=== PATIENT | female | born 1980 | race Caucasian/White ===

== ENCOUNTER 2016-10-28 08:14 | Inpatient (IN) | payer OTHER ==
[~2016-10-28] VITALS: Ht 167.6 cm; Wt 122.5 kg
[2016-10-28] MEDS ORDERED: Sodium Chloride LOK Flush 10 mL Syringe IVFLUSH PRN ×2 (08:50→16:30)
[2016-10-28] MEDS ORDERED: Methylergonovine 0.2 mg/mL Inj IM PRN ×2 (08:50→16:30)
[2016-10-28] MEDS ORDERED: Oxytocin 30 Units/500 mL LR 30 UNITS in IV Premix 1 EACH IV PRN ×2 (08:50→16:30)
[2016-10-28] MEDS ORDERED: Oxytocin 10 Unit/mL Inj IM PRN ×2 (08:50→16:30)
[2016-10-28] MEDS ORDERED: Penicillin G K Inj 5,000,000 UNITS in Dextrose 5% Minibag Plus 100 ML IV ONE (08:50)
[2016-10-28] MEDS ORDERED: fentaNYL-PF 50 mCg/mL 2 mL Inj IVPUSH PRN ×2 (08:50→16:45)
[2016-10-28] MEDS ORDERED: Hemorrhage Kit, Post Partum XX ONE ×2 (08:50→16:30)
[2016-10-28] MEDS ORDERED: Carboprost 250 mCg/mL Inj IM PRN ×2 (08:50→16:30)
[2016-10-28 09:33] LABS: Mean Corpuscular Hemoglobin 29.6 pg (27.0-35.0); Mean Corpuscular Volume 88.8 fL (81-100)
[2016-10-28] MEDS ORDERED: 0.9% Sodium Chloride 100 ML IV ONE (09:44)
[2016-10-28] MEDS ORDERED: Penicillin G K 5,000,000 Units Inj ONE (09:44)
[2016-10-28] MEDS: Lactated Ringer's 1,000 ML IV PRN ×2 (09:48→10:39)
[2016-10-28] MEDS ORDERED: fentaNYL 2 mCg/mL-Bupivicaine 0.125% 100 mL Premix EPIDURAL ONE (09:50)
[2016-10-28] MEDS ORDERED: Oxytocin 10 Unit/mL Inj ONE (10:12)
[2016-10-28] MEDS ORDERED: Ondansetron 2 mg/mL 2 mL Inj ONE (10:12)
[2016-10-28] MEDS ORDERED: MetoCLOpramide 5 mg/mL 2 mL Inj ONE (10:12)
[2016-10-28] MEDS ORDERED: Phenylephrine/NS 100 mCg/mL 10 mL Syringe IVPUSH ONE (10:12)
[2016-10-28] MEDS ORDERED: Morphine PF 1 mg/mL 10 mL Inj ONE (10:12)
[2016-10-28] MEDS: Lactated Ringer's 1,000 ML IV SCH (10:44)
[2016-10-28] MEDS ORDERED: Lactated Ringer's 500 ML IV ONE (10:44)
[2016-10-28] MEDS ORDERED: EPHEDrine Sulfate 50 mg/mL Inj IVPUSH PRN ×2 (10:45→16:45)
[2016-10-28] MEDS ORDERED: Ondansetron 2 mg/mL 2 mL Inj IVPUSH PRN ×2 (10:45→16:45)
[2016-10-28] MEDS ORDERED: fentaNYL 2 mCg/mL-Bupiv 0.125% 100 ML EPIDURAL SCH (10:45)
[2016-10-28] MEDS ORDERED: Atropine 1 mg/10 mL (Code) Syringe IVPUSH PRN (10:45)
--- NOTE | 2016-10-28 10:45 | PCM.HPANE ---
Patient Data Surgeon Admitting Provider:Adan Howard MD Attending Provider:Adan Howard MD Primary Care Physician:Trever Other Provider: Reason for Visit Early Labor EARLY LABOR Ht/WT & BMI Body Mass Index Allergies Coded Allergies: No Known Allergies (Unverified , 10/28/16) History Smoking Status: Never Smoker Stop/Bang Risk Assessment Category Category 1A: Patient has history of documented sleep apnea, and HAS NOT received any narcotic, sedative or anesthesia administration during this stay. Category 1B: Patient has history of documented sleep apnea, and HAS received any narcotic , sedative or anesthesia administration during this stay Category 2: Patient has SUSPECTED Obstructive Sleep Apnea, and HAS received any narcotic , sedative or anesthesia administration during this stay. Category 3: Patient has SUSPECTED Obstructive Sleep Apnea and HAS NOT received narcotic, sedative or anesthesia administration during this stay. Category 4: Outpatient in Procedural Areas with known sleep apnea or who screen positive for High Risk via the STOP/BANG questionnaire. Exam Exam General Appearance: Alert, Oriented X3, Cooperative, No Acute Distress, Severe Distress (labor pain) HEENT/AIRWAY: MP 2, Neck Movement (FROM), Mouth Opening (3 FBMO) Lungs: Clear to Auscultation, Normal Air Movement Heart: Exam Unremarkable, Regular Rate/Rhythm, No Murmurs/Rubs/Gallops Meds/Labs/Diagnostics Admission Meds Current Medications Penicillin G Potassium 3040282 units 5,000,000 units STK-MED ONCE .ROUTE Last administered on 10/28/16 09:48; Start 10/28/16 at 09:44; Stop 10/28/16 at 09:45 ; Status DC Sodium Chloride (Normal Saline) 100 ml @ ud STK-MED ONCE IV Last administered on 10/28/16 09:48; Start 10/28/16 at 09:44; Stop 10/28/16 at 09:45; Status DC Labs Test 10/28/16 09:10 White Blood Count 11.1th/mm3 (3.8-10.1) Red Blood Count 4.19mil/mm3 (3.90-5.20) Hemoglobin 12.4g/dL (12.0-15.6) Hematocrit 37.2% (35.0-46.0) Mean Corpuscular Volume 88.8fL (81-100) Mean Corpuscular Hemoglobin 29.6pg (27.0-35.0) Mean Corpuscular Hemoglobin Concent 33.3% (32.0-37.0) Red Cell Distribution Width 14.7% (12.3-15.4) Platelet Count 191bil/L (150-400) Plan Impression Patient chart reviewed, patient interviewed and anesthestic plan with risks, benefits, and alternatives discussed, and informed consent obtained. NPO Status: L&D protocol ASA Physical Status: ASA2 Mod Systemic Disease Anesthetic Plan: Epidural Bene/Risks/Altern/Consents: Yes HP Complete Prior to Induction: Yes Luis Zamora MD Oct 28, 2016 09:55
[2016-10-28] MEDS ORDERED: Penicillin G K 3,000,000 Units/50 mL D5W Premix IV ONE (13:45)
[2016-10-28] MEDS ORDERED: Sodium Citrate-Citric Acid 15 mL Solution ONE (15:08)
[2016-10-28] MEDS ORDERED: CeFAZolin Inj 2 GM in IV Premix 1 EACH IV ONE (15:10)
[2016-10-28] MEDS ORDERED: Sodium Citrate-Citric Acid 15 mL Solution PO SCH (15:10)
[2016-10-28] MEDS ORDERED: hydrOXYzine Pamoate 25 mg Capsule PO PRN (16:30)
[2016-10-28] MEDS ORDERED: Lactated Ringer's 1,000 ML IV SCH (16:30)
[2016-10-28] MEDS ORDERED: LANOlin HPA 7 Gm Ointment TOPICAL PRN (16:30)
[2016-10-28] MEDS ORDERED: Penicillin G K Inj 3,000,000 UNITS in IV Premix 1 EACH IV SCH (16:30)
[2016-10-28] MEDS ORDERED: diphenhydrAMINE 50 mg Capsule PO PRN (16:30)
[2016-10-28] MEDS ORDERED: HYDROcodone-APAP 5-325 mg Tablet PO PRN (16:30)
[2016-10-28] MEDS ORDERED: Dexamethasone 4 mg/mL Inj IVPUSH PRN (16:45)
[2016-10-28] MEDS ORDERED: Atropine 0.4 mg/mL Inj IV PRN (16:45)
[2016-10-28] MEDS ORDERED: Morphine PF 1 mg/mL 10 mL Inj EPIDURAL ONE (16:45)
--- NOTE | 2016-10-28 16:46 | PCM.ANEP1 ---
Post Anesthesia Phase 1 PACU Phase 1 Assessment Anesthetic Administered: Epidural Level of Alertness: Awake, talking FREGOSO's with Equal Strength: No (Epidural still in effect) Pain: No Nausea or Vomiting: No Oxygen Delivery: Room Air Lungs: Clear to Auscultation, Normal Air Movement Dermatome Level: T10 (Umbilicus) Luis Zamora MD Oct 28, 2016 16:46
--- NOTE | 2016-10-28 16:47 | PCM.ANEP1 ---
Post Anesthesia Phase 1 PACU Phase 1 Assessment Anesthetic Administered: Epidural Level of Alertness: Awake, talking FREGOSO's with Equal Strength: No (Epidural still in effect) Pain: No Nausea or Vomiting: No Oxygen Delivery: Room Air Lungs: Clear to Auscultation, Normal Air Movement Dermatome Level: T10 (Umbilicus) Summary Vital signs within normal limits, see nursing record Luis Zamora MD Oct 28, 2016 16:47
--- NOTE | 2016-10-28 16:47 | PCM.ANEP2 ---
Post Anesthesia Evaluation ASA/CMS Post Anesthesia VS in Patient's Normal Range?: Yes Resp Stable; Airway Patent?: Yes CV Function & Hydration Stable: Yes Mental Status Recovered?: Yes Pain control Satisfactory?: Yes N/V Control Satisfactory?: Yes Luis Zamora MD Oct 28, 2016 16:47
[2016-10-28] MEDS: Acetaminophen IV 1,000 MG in IV Premix 1 EACH IV PRN (16:50)
[2016-10-29] MEDS: Acetaminophen IV 1,000 MG in IV Premix 1 EACH IV PRN (02:35)
[2016-10-29] MEDS: Lactated Ringer's 1,000 ML IV SCH (05:55)
[2016-10-29 07:17] LABS: Mean Corpuscular Hemoglobin 29.4 pg (27.0-35.0); Mean Corpuscular Volume 90.4 fL (81-100)
--- NOTE | 2016-10-29 10:08 | NUR ---
note MOB has electric breast pump at bedside but has not been shown how to use it. Set up pump with instructions for use and reasons for pumping while mom and baby are . Mom has large, soft breasts with flat nipples that mauro with pump stimulation. Had mom start pumping for 10 minutes using standard nipple flange. She got drops of colostrum this first time. Set up a schedule for pumping every 3 hours. Mom has her own Medela Pump N Style pump coming from her insurance very soon. (she will call this afternoon).
[2016-10-29] MEDS: oxyCODONE-Acetamin 5-325 mg Tablet PO PRN ×3 (10:36→20:08)
--- NOTE | 2016-10-29 14:17 | NUR ---
note MOB requests assist to set up the breast pump. I had her put together all the parts and she then double pumped for 10 minutes and she expressed 6 ml. The syringes of EBM are labeled and in the refrigerator and FOB will be here later and will take the milk to [facility] when he visits the babies this afternoon. Mom is getting comfortable with pumping.
--- NOTE | 2016-10-30 04:09 | PROG NOTE ---
[address] [address] PROGRESS NOTE PATIENT: XIAO ZAPIEN : 1980 MR#: [id number] ADMIT: 10/28/2016 JOB ID: [id number] DATE: 10/29/2016 at 0930 hour. SUBJECTIVE: The patient underwent primary section for delivery of nearly 11 pound baby in the late afternoon of October 28, 2016. During the timeframe, the patient has been stable, with reasonable bleeding, reasonable pain management, reasonable urine output, with acceptable vitals (borderline blood pressure elevation at times, as noted also during ), and afebrile. There has been no leg pain or shortness of breath. No concerning findings on physical examination, note abdomen with appropriate level of tenderness, incision covered, nontender calves. PLAN: Continue postoperative/ care. Increase activity including ambulation. Two discontinue Bryan catheter. Hep-Lock IV when taking adequate p.o. fluids. Continue to track blood pressure. To remove dressing when taking a shower later today. The patient will likely be able to be discharged to home on October 30, 2016. Encouragement given in regard to the baby that was sent to [facility] in the setting of potential heart issue. The patient reports that the baby has been doing very well and she hopes that the baby will be brought back up to [facility].
[2016-10-30] MEDS: oxyCODONE-Acetamin 5-325 mg Tablet PO PRN ×5 (04:29→16:10)
--- NOTE | 2016-10-30 15:28 | PCM.PNOBPP ---
Subjective Date of Service Oct 30, 2016 Post : Primary Ceserean Delivery Lochia: Normal Pain Management: PO pain meds Gastrointestinal: Good Appetite, No N/V Postop Activity: Ambulating Independently Labs Laboratory Tests 10/29/16 06:45: White Blood Count 10.8, Red Blood Count 3.33, Hemoglobin 9.8, Hematocrit 30.1, Mean Corpuscular Volume 90.4, Mean Corpuscular Hemoglobin 29.4, Mean Corpuscular Hemoglobin Concent 32.6, Red Cell Distribution Width 14.9, Platelet Count 133 Exam Vital Signs Vital Signs: VS reviewed, stable Exam Abdomen: Fundus firm Lungs: Clear to Auscultation Heart: Exam Unremarkable General: Alert, Oriented X3 Surgical Wound : Incision General Appearence: [place]ola Dressing & Drainage Status: Dressing Removed OB Post Assessment/Plan Problems: (1) Status post primary low transverse section Status: Acute ICD Code: Z98.89 Pain Evaluation: Adequate Pain Control Post plan: Continue routine post care, Anticipate discharge home today Adan Howard MD Oct 30, 2016 15:28
--- NOTE | 2016-10-30 15:29 | PCM.DIOB ---
Obstetrical Disch Instruction Date of Service: Oct 30, 2016 Dates of Hospitalization Date of Hospital Admission Oct 28, 2016 at 09:20 Providers Admitting Physician: Adan Howard MD Primary Care Physician: Nopcp Attending Physician: Adan Howard MD Discharge Diagnosis Problems: (1) Status post primary low transverse section Status: Acute ICD Code: Z98.89 Diet Discharge Diet: No restrictions Activity Discharge Activity-General: Pelvic Rest for 6 weeks, Try not to overdue, Balance rest and activity, Activity as pain allows, No lifting >10 pounds for 4- 6 weeks Dressing and Incisional Care Dressing Care: Allow Steri Stripes to fall off Hygiene: May shower, NO bathtub, hot tub or whirlpool Follow Up Plan Follow-up Provider (F9): Adan Howard MD Follow-up appointment: Weeks (8) Call your provider for: Fever or Chills, Heavy vaginal bleeding, Excessive constipation, Red painful breasts Adan Howard MD Oct 30, 2016 15:29
[2016-10-30] MEDS ORDERED: DOCU-41 PO (15:31)
[2016-10-30] MEDS ORDERED: IBUP800T28 PO (15:31)
[2016-10-30] MEDS ORDERED: OXYC1TAB24 PO (15:31)
[2016-10-30 15:56] VITALS: BP 158/89; PULSE 94; RESP 17
--- NOTE | 2016-10-30 19:19 | OP ---
[address] [address] OPERATIVE REPORT PATIENT: XIAO ZAPIEN : 1980 MR#: [id number] ADMIT: 10/28/2016 JOB ID: [id number] DATE OF SURGERY: 10/28/2016 PREOPERATIVE DIAGNOSIS(ES): 1. Primiparous female at 41-1/2 weeks estimated gestational age. 2. Failure to progress in stage 1 and failure to descend. 3. Cephalopelvic disproportion. 4. intolerance of labor. 5. Group B strep positive status. 6. macrosomia. POSTOPERATIVE DIAGNOSIS(ES): 1. Primiparous female at 41-1/2 weeks estimated gestational age. 2. Failure to progress in stage 1 and failure to descend. 3. Cephalopelvic disproportion. 4. intolerance of labor. 5. Group B strep positive status. 6. macrosomia. SURGERY: Primary low transverse section via Pfannenstiel incision. SURGEON: Adan Howard MD INTERNATIONAL FLIGHT ATTENDANT: ROB De La Cruz. ANESTHESIA: Epidural. INDICATIONS: As above. The patient presented in labor and progressed in normal fashion to 9.5 cm but continued to have an anterior lip and was -1 station. She did not have any descent in the presenting part for over 5 hours despite her contractions. Additionally, she started having a rise in the baseline of the heart tones. They flattened out and the patient was noted to have meconium. Given that we were concerned about the size of the baby from the start, and that she had been not making progress, and that the heart strip would not allow for Pitocin to be given, we decided to do a . COMPLICATIONS: None. PATHOLOGY: None. IV FLUIDS IN: 1500 cc lactated Ringer's. URINE OUT: 100 cc of clear urine at end of procedure. ESTIMATED BLOOD LOSS: 800 cc. PROCEDURE IN DETAIL: The patient was taken back to the OR after being consented for surgery. Her epidural was rebolused. Ancef 2 g were given IV. A procedural time-out was done after she was prepped and draped. A low transverse incision was cut down to the fascia using the knife. The fascia was incised in the midline and this incision was carried laterally in each direction using the Gentile scissors. The fascia was elevated superiorly and inferiorly with Joey clamps and the underlying muscle was dissected off using the Gentile scissors. There was a defect centrally in the muscle that was noted and then used to enter the abdominopelvic cavity. We did this bluntly with our fingers. We stretched both the muscle and the peritoneal layer to create room for surgery. The bladder blade was inserted and the bladder flap was created over the uterus using the Metzenbaum scissors. The bladder blade was reinserted and the uterine incision was made with a knife. The final entry into the uterus, however, was with my fingers. The bandage scissors were used to take that incision laterally and superiorly. The fetus was occiput anterior and did not present a problem for delivery of the head. A nuchal cord was noted. Of note, as well is that the head was not engaged. The shoulders were somewhat difficult to deliver, but the infant delivered in excellent fashion and had a cry right from the start as well as good tone. The cord was clamped and cut and the was handed off to the waiting matte cutter. Attention was then paid to the uterus and this was cleared of the placenta manually. The uterus was then exteriorized and cleared of all membranes. Pitocin was given 40 milliunits in the bag. The uterus was closed using 1-0 chromic in a running, locked fashion. Second imbricating layer was performed. There was an area to the left and inferiorly that was partially denuded of the peritoneal covering over the uterus and this was oozing and so it was drawn closed using 1-0 chromic as well. Once all this had been done, the abdominopelvic cavity was irrigated and the uterus was replaced back into the pelvis. We inspected the uterus several times for bleeding and none was found. Attention was then paid to the abdominal muscle and this was closed in a running fashion using 2-0 chromic. The muscle was inspected for bleeding and none was found. Attention was then paid to the fascia and this was closed using 0 Vicryl in a running fashion. Once the fascia had been closed, the subcutaneous layer was sutured using 2-0 plain suture in a running fashion. This layer was irrigated and the skin was closed using isaac. A pressure dressing was applied. Counts were correct x3. The patient was in excellent condition following the procedure. She was taken back to her preoperative room at that time.
--- NOTE | 2016-12-09 17:40 | PCM.DC.OB ---
Obstetrical Discharge Summary Date of Service October 30, 2016 Date of hospital admission Oct 28, 2016 at 09:20 Date of Discharge: Oct 30, 2016 Providers Admitting Physician: Adan Ghosh MD Primary Care Physician: Nopcp Attending Physician: Adan Ghosh MD Problems: (1) Status post primary low transverse section Status: Acute ICD Code: Z98.89 Consultations None Invasive procedures LTCS Date of Procedure: Oct 28, 2016 Hospital Course: Patient with primary . See op note. Recovered in excellent fashion. Docusate Sodium (Colace) 100 Mg Capsule 100 MG PO BID Prescribed by: ADAN GHOSH MD Ibuprofen (Ibuprofen) 800 Mg Tablet 800 MG PO Q6H PRN PRN For Pain Prescribed by: ADAN GHOSH MD oxyCODONE-Acetaminophen 5-325 mg (oxyCODONE-Acetaminophen 5-325 mg) 1 Each Tablet 1-2 TAB PO Q4H PRN PRN For Pain Prescribed by: ADAN GHOSH MD Follow-up plan see me in two weeks Discharge Activity-General: Pelvic Rest, Try not to overdue, Activity as pain allows, Activity as energy allows, No lifting >15 pounds for 2 weeks Adan Ghosh MD Dec 09, 2016 17:39
== END 2016-10-30 16:31 | disposition home or self-care (01) | DRG 766 ==
LOC: FBCO 08:14 → FBC 09:20 → UNDOADMIN 09:20
PROVIDERS: ADMIT Family Medicine; ATTEND Family Medicine
PROC: 10D00Z1 Extraction of Products of Conception, Low, Open Approach (ICD-10-PCS; principal; 2016-10-28 15:15)
DX: O32.4XX0 Maternal care for high head at term, not applicable or unspecified (principal); O77.0 Labor and delivery complicated by meconium in amniotic fluid; O69.2XX0 Labor and delivery complicated by other cord entanglement, with compression, not applicable or unspecified; O33.5XX0 Maternal care for disproportion due to unusually large fetus, not applicable or unspecified; O62.1 Secondary uterine inertia; O36.63X0 Maternal care for excessive fetal growth, third trimester, not applicable or unspecified; O09.513 Supervision of elderly primigravida, third trimester; O99.824 Streptococcus B carrier state complicating childbirth; Z37.0 Single live birth; Z3A.41 41 weeks gestation of pregnancy